=== PATIENT | male | born 1960 | race Caucasian/White ===

== ENCOUNTER 2016-12-21 21:52 | Inpatient (IN) | payer OTHER ==
[~2016-12-21] VITALS: Ht 160 cm; Wt 103.6 kg
[~2016-12-21 21:52] MED LIST: ATOR20TA86 PO; LISI-662 PO
[2016-12-21 22:30] LABS: BASOPHILS # (AUTO) 0.08 K/uL (0.00-0.20); BASOPHILS % (AUTO) 0.8 % (0.0-2.0); EOSINOPHILS % (AUTO) 1.93 % (1.0-6.0); HEMATOCRIT 47.2 % (41-53); HEMOGLOBIN 15.3 g/dL (13.5-17.5); LYMPHOCYTES # (AUTO) 2.9 K/uL (1.0-4.8); LYMPHOCYTES % (AUTO) 27.8 % (22.0-44.0); MEAN CORPUSCULAR HGB CONC 32.3 G/dL (31.0-37.0); MEAN CORPUSCULAR VOLUME 93 fL (80-100); MONOCYTES # (AUTO) 0.9 K/uL (0.1-1.0); MONOCYTES % (AUTO) 9.2 % (2.0-9.0); NEUTROPHILS # (AUTO) 6.2 K/uL (1.8-7.7); NEUTROPHILS % (AUTO) 60.3 % (40.0-70.0); PLATELET COUNT (AUTO) 208 K/uL (150-450); RED BLOOD CELL COUNT(AUTO) 5.08 MIL/uL (4.50-5.90); RED CELL DISTRIBUTION WIDTH 14.7 % (11.5-14.5); WHITE BLOOD COUNT (AUTO) 10.3 K/uL (4.5-11.0)
[2016-12-21 22:39] LABS: ANION GAP 8 mmol/L (8-16); CALCIUM, TOTAL 8.8 mg/dL (8.8-10.5); CARBON DIOXIDE 30 mmol/L (22-29); CHLORIDE 104 mmol/L (98-107); CREATININE 1.04 mg/dL (0.60-1.30); GLOMERULAR FILTR. RATE CALC > 60 mL/min (>60); SODIUM SERUM 142 mmol/L (136-145); UREA NITROGEN, BLOOD 13 mg/dL (7-18)
[2016-12-21 22:44] LABS: ALANINE AMINOTRANSFERASE 54 U/L (12-78); ALBUMIN 3.6 g/dL (3.4-5.0); ASPARTATE AMINOTRANSFERASE 21 U/L (15-37); BILIRUBIN,TOTAL 0.3 mg/dL (0.1-1.0); TOTAL PROTEIN, SERUM 7.5 g/dL (6.4-8.2)
[2016-12-21 23:23] LABS: ADD UA MICROSCOPIC YES; APPEARANCE,URINE CLEAR (CLEAR); GLUCOSE, URINE (UA) NEGATIVE (NEGATIVE); KETONES,URINE NEGATIVE (NEGATIVE); LEUKOCYTE ESTERASE ,URINE NEGATIVE (NEGATIVE); OCCULT BLOOD,URINE TRACE (NEGATIVE); PROTEIN,URINE TRACE (NEGATIVE)
[2016-12-21] MEDS ORDERED: NITROGLYCERIN 2% (1 GM=INCH) PACKET TP ONE (23:30)
[2016-12-21] MEDS ORDERED: ASPIRIN 325 MG TABLET PO ONE (23:30)
[2016-12-22] MEDS ORDERED: ONDANSETRON HCL 4 MG/2 ML VIAL IVP PRN
[2016-12-22] MEDS ORDERED: 0.9% SODIUM CHLORIDE 10 ML SYRINGE IVP PRN
[2016-12-22] MEDS ORDERED: FUROSEMIDE 20 MG/2 ML VIAL IVP ONE (00:15)
[2016-12-22] MEDS ORDERED: PANTOPRAZOLE SODIUM 40 MG DR TABLET PO ONE (02:30)
[2016-12-22] MEDS ORDERED: MORPHINE SULFATE 2 MG/ML SYRINGE IVP PRN (02:30)
[2016-12-22] MEDS ORDERED: LORazepam 1 MG TABLET PO PRN (02:30)
[2016-12-22] MEDS ORDERED: NITROGLYCERIN 2% (1 GM=INCH) PACKET TP PRN (02:30)
[2016-12-22] MEDS ORDERED: ACETAMINOPHEN 325 MG TABLET PO PRN ×2 (02:30)
[2016-12-22] MEDS: DOCUSATE SODIUM 100 MG CAPSULE PO SCH (09:00)
[2016-12-22 09:05] VITALS: BP 151/92
[2016-12-22] MEDS: LISINOPRIL 20 MG TABLET PO SCH (09:45)
[2016-12-22] MEDS: ATORVASTATIN CALCIUM 20 MG TABLET PO SCH (09:45)
[2016-12-22] MEDS: ASPIRIN 81 MG CHEWABLE TABLET PO SCH (09:45)
[2016-12-22 11:49] VITALS: BP 131/80
[2016-12-22 16:17] VITALS: BP 118/82
[2016-12-22] MEDS ORDERED: INFLUENZA VIRUS VACCINE QVS 2016-17 (3YR+)/PF 60 MCG/0.5 ML SYRINGE IM ONE (18:15)
[2016-12-22] MEDS ORDERED: PNEUMOCOCCAL VACCINE POLYVALENT 0.5 ML VIAL [PPSV23] IM ONE (18:15)
[2016-12-22 19:56] VITALS: BP 120/81
[2016-12-22] MEDS: CARVEDILOL 6.25 MG TABLET PO SCH (22:45)
[2016-12-22 23:40] VITALS: BP 128/85
[2016-12-22] MEDS: HEPARIN SODIUM,PORCINE 5,000 UNITS/ML VIAL SQ SCH (23:46)
[2016-12-23 05:06] VITALS: BP 129/81
[2016-12-23 07:07] VITALS: BP 137/64
[2016-12-23 07:29] LABS: BASOPHILS # (AUTO) 0.04 K/uL (0.00-0.20); BASOPHILS % (AUTO) 0.4 % (0.0-2.0); EOSINOPHILS # (AUTO) 0.14 K/uL (0.00-0.70); EOSINOPHILS % (AUTO) 1.46 % (1.0-6.0); HEMATOCRIT 46.4 % (41-53); HEMOGLOBIN 15.1 g/dL (13.5-17.5); LYMPHOCYTES # (AUTO) 1.8 K/uL (1.0-4.8); LYMPHOCYTES % (AUTO) 18.9 % (22.0-44.0); MEAN CORPUSCULAR HEMOGLOBIN 30.4 pg (26.0-34.0); MEAN CORPUSCULAR HGB CONC 32.5 G/dL (31.0-37.0); MEAN CORPUSCULAR VOLUME 94 fL (80-100); MONOCYTES # (AUTO) 0.8 K/uL (0.1-1.0); MONOCYTES % (AUTO) 8.1 % (2.0-9.0); NEUTROPHILS # (AUTO) 6.8 K/uL (1.8-7.7); NEUTROPHILS % (AUTO) 71.1 % (40.0-70.0); PLATELET COUNT (AUTO) 202 K/uL (150-450); RED BLOOD CELL COUNT(AUTO) 4.95 MIL/uL (4.50-5.90); RED CELL DISTRIBUTION WIDTH 14.4 % (11.5-14.5); WHITE BLOOD COUNT (AUTO) 9.6 K/uL (4.5-11.0)
[2016-12-23] MEDS: ASPIRIN 81 MG CHEWABLE TABLET PO SCH (07:49)
[2016-12-23] MEDS: HEPARIN SODIUM,PORCINE 5,000 UNITS/ML VIAL SQ SCH ×2 (07:49→16:44)
[2016-12-23] MEDS: ATORVASTATIN CALCIUM 20 MG TABLET PO SCH (07:49)
[2016-12-23] MEDS: DOCUSATE SODIUM 100 MG CAPSULE PO SCH (07:49)
[2016-12-23] MEDS: LISINOPRIL 20 MG TABLET PO SCH (07:49)
[2016-12-23] MEDS: CARVEDILOL 6.25 MG TABLET PO SCH ×2 (07:51→20:45)
[2016-12-23 07:57] LABS: ANION GAP 10 mmol/L (8-16); CALCIUM, TOTAL 8.4 mg/dL (8.8-10.5); CARBON DIOXIDE 26 mmol/L (22-29); CHLORIDE 105 mmol/L (98-107); CHOL/HDL RATIO 3.4 (4.2-7.3); CREATININE 0.94 mg/dL (0.60-1.30); GLOMERULAR FILTR. RATE CALC > 60 mL/min (>60); POTASSIUM 3.8 mmol/L (3.5-5.1); SODIUM SERUM 141 mmol/L (136-145); UREA NITROGEN, BLOOD 13 mg/dL (7-18)
[2016-12-23 10:58] VITALS: BP 129/83
[2016-12-23 15:46] VITALS: BP 138/78
[2016-12-23 19:30] VITALS: BP 142/86
[2016-12-24] VITALS (9 sets, daily range): BP systolic 116–161; BP diastolic 70–96
[2016-12-24] MEDS: HEPARIN SODIUM,PORCINE 5,000 UNITS/ML VIAL SQ SCH ×3 (00:20→16:59)
[2016-12-24 07:44] LABS: B-TYPE NATRIURETIC PEPTIDE 106 pg/mL (0-100)
[2016-12-24 07:52] LABS: ANION GAP 8 mmol/L (8-16); CALCIUM, TOTAL 8.7 mg/dL (8.8-10.5); CARBON DIOXIDE 29 mmol/L (22-29); CHLORIDE 105 mmol/L (98-107); CREATINE KINASE MB 1.3 ng/mL (0-5); CREATINE KINASE, TOTAL 112 U/L (39-308); CREATININE 1.05 mg/dL (0.60-1.30); GLOMERULAR FILTR. RATE CALC > 60 mL/min (>60); SODIUM SERUM 142 mmol/L (136-145); UREA NITROGEN, BLOOD 15 mg/dL (7-18)
[2016-12-24] MEDS ORDERED: DOBUTamine HCL/D5W 500 MG/250 ML IV BAG [STRESS LAB ONLY] IV ONE ×2 (11:01→16:56)
[2016-12-24] MEDS ORDERED: ATROPINE SULFATE 0.1 MG/ML 10 ML SYRINGE IVP ONE (11:15)
[2016-12-24] MEDS: CARVEDILOL 6.25 MG TABLET PO SCH ×2 (12:10→20:03)
[2016-12-24] MEDS: ATORVASTATIN CALCIUM 20 MG TABLET PO SCH (12:11)
[2016-12-24] MEDS: ASPIRIN 81 MG CHEWABLE TABLET PO SCH (12:11)
[2016-12-24] MEDS: DOCUSATE SODIUM 100 MG CAPSULE PO SCH (12:11)
[2016-12-24] MEDS: LISINOPRIL 20 MG TABLET PO SCH (12:11)
[2016-12-24] MEDS ORDERED: ATROPINE SULFATE 1 MG/ML VIAL IVP ONE (16:56)
[2016-12-24] MEDS: AMIODARONE HCL 200 MG TABLET PO SCH ×2 (16:59→20:04)
[2016-12-24] MEDS ORDERED: 0.9% SODIUM CHLORIDE 10 ML SYRINGE IVP PRN (23:00)
[2016-12-25] VITALS (15 sets, daily range): BP systolic 104–166; BP diastolic 60–88
[2016-12-25] MEDS: HEPARIN SODIUM,PORCINE 5,000 UNITS/ML VIAL SQ SCH ×4 (00:46→23:49)
[2016-12-25 07:28] LABS: ANION GAP 6 mmol/L (8-16); CALCIUM, TOTAL 8.6 mg/dL (8.8-10.5); CARBON DIOXIDE 29 mmol/L (22-29); CHLORIDE 105 mmol/L (98-107); CREATINE KINASE MB 0.9 ng/mL (0-5); CREATINE KINASE, TOTAL 84 U/L (39-308); CREATININE 1.06 mg/dL (0.60-1.30); GLOMERULAR FILTR. RATE CALC > 60 mL/min (>60); SODIUM SERUM 140 mmol/L (136-145); UREA NITROGEN, BLOOD 16 mg/dL (7-18)
[2016-12-25 07:52] LABS: B-TYPE NATRIURETIC PEPTIDE 62 pg/mL (0-100)
[2016-12-25] MEDS ORDERED: IOHEXOL 300 MG/ML 150 ML VIAL ONE (12:36)
[2016-12-25] MEDS ORDERED: HEPARIN SODIUM 1000 UNITS/NS 1,000 ML ONE (12:36)
[2016-12-25] MEDS ORDERED: LIDOCAINE HCL/PF 1% 30 ML VIAL ONE (12:36)
[2016-12-25] MEDS ORDERED: SODIUM BICARBONATE 50 MEQ/50 ML VIAL ONE (12:36)
[2016-12-25] MEDS ORDERED: HEPARIN SODIUM 1000 UNITS/NS 500 ML ONE (13:04)
[2016-12-25] MEDS ORDERED: MIDAZOLAM HCL 2 MG/2 ML VIAL ONE (13:17)
[2016-12-25] MEDS ORDERED: FentaNYL CITRATE-PF 100 MCG/2 ML VIAL ONE (13:17)
[2016-12-25] MEDS ORDERED: SODIUM CHLORIDE 0.9% 500 ML IV ONE (13:18)
[2016-12-25] MEDS ORDERED: HEPARIN SODIUM 1000 UNITS/NS 1,000 ML IARTER ONE (13:18)
[2016-12-25] MEDS ORDERED: LIDOCAINE 1% 30 ML/SOD BICARB 8.4% 4 ML SQ ONE (13:30)
[2016-12-25] MEDS ORDERED: IOHEXOL 300 MG/ML 150 ML VIAL IARTER ONE (13:30)
[2016-12-25] MEDS: DOCUSATE SODIUM 100 MG CAPSULE PO SCH (15:09)
[2016-12-25] MEDS: ATORVASTATIN CALCIUM 20 MG TABLET PO SCH (15:09)
[2016-12-25] MEDS: AMIODARONE HCL 200 MG TABLET PO SCH ×3 (15:09→21:16)
[2016-12-25] MEDS: ASPIRIN 81 MG CHEWABLE TABLET PO SCH (15:09)
[2016-12-25] MEDS: LISINOPRIL 20 MG TABLET PO SCH (15:09)
[2016-12-25] MEDS: CARVEDILOL 6.25 MG TABLET PO SCH ×2 (15:09→21:16)
[2016-12-26 06:11] VITALS: BP 127/71
[2016-12-26 06:31] LABS: BASOPHILS % (AUTO) 0.5 % (0.0-2.0); EOSINOPHILS % (AUTO) 1.1 % (1.0-6.0); HEMATOCRIT 45.8 % (41-53); HEMOGLOBIN 14.9 g/dL (13.5-17.5); LYMPHOCYTES # (AUTO) 1.3 K/uL (1.0-4.8); LYMPHOCYTES % (AUTO) 15.1 % (22.0-44.0); MEAN CORPUSCULAR HEMOGLOBIN 30.2 pg (26.0-34.0); MEAN CORPUSCULAR HGB CONC 32.4 G/dL (31.0-37.0); MEAN CORPUSCULAR VOLUME 93 fL (80-100); MONOCYTES # (AUTO) 0.8 K/uL (0.1-1.0); MONOCYTES % (AUTO) 8.6 % (2.0-9.0); NEUTROPHILS # (AUTO) 6.6 K/uL (1.8-7.7); NEUTROPHILS % (AUTO) 74.7 % (40.0-70.0); PLATELET COUNT (AUTO) 173 K/uL (150-450); RED BLOOD CELL COUNT(AUTO) 4.92 MIL/uL (4.50-5.90); WHITE BLOOD COUNT (AUTO) 8.8 K/uL (4.5-11.0)
[2016-12-26 06:53] LABS: ANION GAP 10 mmol/L (8-16); CALCIUM, TOTAL 8.6 mg/dL (8.8-10.5); CARBON DIOXIDE 25 mmol/L (22-29); CHLORIDE 104 mmol/L (98-107); CREATININE 1.08 mg/dL (0.60-1.30); GLOMERULAR FILTR. RATE CALC > 60 mL/min (>60); SODIUM SERUM 139 mmol/L (136-145); UREA NITROGEN, BLOOD 15 mg/dL (7-18)
[2016-12-26 08:01] VITALS: BP 137/76
[2016-12-26] MEDS: CARVEDILOL 6.25 MG TABLET PO SCH (09:00)
[2016-12-26] MEDS: AMIODARONE HCL 200 MG TABLET PO SCH ×2 (09:00→16:00)
[2016-12-26] MEDS: DOCUSATE SODIUM 100 MG CAPSULE PO SCH (09:45)
[2016-12-26] MEDS: ASPIRIN 81 MG CHEWABLE TABLET PO SCH (09:46)
[2016-12-26] MEDS: HEPARIN SODIUM,PORCINE 5,000 UNITS/ML VIAL SQ SCH ×2 (09:46→16:00)
[2016-12-26] MEDS: LISINOPRIL 20 MG TABLET PO SCH (09:46)
[2016-12-26] MEDS: ATORVASTATIN CALCIUM 20 MG TABLET PO SCH (09:46)
[2016-12-26 11:23] VITALS: BP 123/88
[2016-12-26 16:33] VITALS: BP 146/87
[2016-12-26] MEDS ORDERED: AMIO200T44 PO (17:28)
[2016-12-26] MEDS ORDERED: CARV6 PO (17:28)
[2016-12-26] MEDS ORDERED: ASPI81 PO (17:28)
[2016-12-26] MEDS ORDERED: DSS100 PO (17:32)
[2016-12-26] MEDS ORDERED: LISI-662 PO (17:33)
== END 2016-12-26 18:30 | disposition home or self-care (01) | DRG 191 ==
LOC: EMS 21:55 → 5S 12-22 05:00
PROVIDERS: ADMIT Internal Medicine; ATTEND Internal Medicine
PROC: 3E0234Z Introduction of Serum, Toxoid and Vaccine into Muscle, Percutaneous Approach (ICD-10-PCS; principal; 2016-12-23)
PROC: 3E0234Z Introduction of Serum, Toxoid and Vaccine into Muscle, Percutaneous Approach (ICD-10-PCS; 2016-12-23)
PROC: 4A023N7 Measurement of Cardiac Sampling and Pressure, Left Heart, Percutaneous Approach (ICD-10-PCS; 2016-12-25)
PROC: B2111ZZ Fluoroscopy of Multiple Coronary Arteries using Low Osmolar Contrast (ICD-10-PCS; 2016-12-25)
PROC: B41F1ZZ Fluoroscopy of Right Lower Extremity Arteries using Low Osmolar Contrast (ICD-10-PCS; 2016-12-25)
DX: I50.21 Acute systolic (congestive) heart failure (principal); R45.851 Suicidal ideations; I11.0 Hypertensive heart disease with heart failure; I25.10 Atherosclerotic heart disease of native coronary artery without angina pectoris; Z68.41 Body mass index [BMI] 40.0-44.9, adult; R07.9 Chest pain, unspecified; I50.20 Unspecified systolic (congestive) heart failure; F32.9 Major depressive disorder, single episode, unspecified; F41.9 Anxiety disorder, unspecified; I48.0 Paroxysmal atrial fibrillation; E66.01 Morbid (severe) obesity due to excess calories; Z23 Encounter for immunization; Z79.899 Other long term (current) drug therapy
CPT/HCPCS: 83036; 83735; 90471; 93005; 93017; 93306; 93350; 96374; 99285; J0461; J1250; J1644; J1940; J2250; J3010; J3490; Q9967

== ENCOUNTER 2019-12-30 08:39 | Emergency (ER) | payer MEDICAID ==
[~2019-12-30] VITALS: Ht 157.5 cm; Wt 95.0 kg
[~2019-12-30 08:39] MED LIST changes: -ATOR20TA86 PO; +CARV6 PO; +CHLO25TA3 PO; +HYDR30CR3 TP; +KDUR10 PO; -LISI-662 PO; +LOSA25TA44 PO; +NIFE60TA81 PO; +RIVA20TA PO
[2019-12-30] MEDS ORDERED: IBUPROFEN 600 MG TABLET PO ONE (10:30)
[2019-12-30 12:55] VITALS: BP 134/94
== END 2019-12-30 13:04 | disposition home or self-care (01) ==
LOC: EMS 08:40
DX: S63.592A Other specified sprain of left wrist, initial encounter (principal); S63.591A Other specified sprain of right wrist, initial encounter; I10 Essential (primary) hypertension; Z98.890 Other specified postprocedural states; Z79.899 Other long term (current) drug therapy; W01.0XXA Fall on same level from slipping, tripping and stumbling without subsequent striking against object, initial encounter; Y93.89 Activity, other specified; Y92.89 Other specified places as the place of occurrence of the external cause; Y99.8 Other external cause status